=== PATIENT | female | born 1995 | race Caucasian/White ===

== ENCOUNTER → 2017-06-09 13:31 | Outpatient (CLI) | payer BC, SELFPAY ==
[2017-06-09 15:35] LABS: Internal QC Validated? YES +Cl - CLEAR BKGD; Pregnancy, Urine Negative Negative
== END ==
PROVIDERS: Family Provider Family Medicine; PCP Family Medicine; Visit Provider Nurse Practitioner Family
DX: L70.0 Acne vulgaris (principal); Z79.899 Other long term (current) drug therapy
CPT/HCPCS: 81025

== ENCOUNTER → 2017-07-23 10:16 | Outpatient (CLI) | payer BC, SELFPAY ==
[2017-07-23 11:53] LABS: Internal QC Validated? YES +Cl - CLEAR BKGD; Pregnancy, Urine Negative Negative
== END ==
PROVIDERS: Family Provider Family Medicine; PCP Family Medicine; Visit Provider Nurse Practitioner Family
DX: L70.0 Acne vulgaris (principal); Z79.899 Other long term (current) drug therapy; B07.8 Other viral warts; R20.8 Other disturbances of skin sensation; L08.89 Other specified local infections of the skin and subcutaneous tissue
CPT/HCPCS: 81025

== ENCOUNTER → 2017-09-03 16:14 | Outpatient (CLI) | payer BC, SELFPAY ==
--- NOTE | 2017-09-03 16:14 | DT_ITS ---
This patient was seen during an EMR downtime September 01, 2017 - September 08, 2017. This patient may have a combination of paper and electronic documentation or all paper documentation. All documentation is viewable within the e-chart portion of [employer] for each patient visit.
[2017-09-06 11:24] LABS: Internal QC Validated? YES +Cl - CLEAR BKGD; Pregnancy, Urine Negative Negative
== END ==
PROVIDERS: Family Provider Family Medicine; PCP Family Medicine; Visit Provider Nurse Practitioner Family
DX: L70.0 Acne vulgaris (principal); Z79.899 Other long term (current) drug therapy; B07.8 Other viral warts
CPT/HCPCS: 81025

== ENCOUNTER → 2017-10-23 10:53 | Outpatient (CLI) | payer BC, SELFPAY ==
[2017-10-23 11:53] LABS: Internal QC Validated? YES +Cl - CLEAR BKGD; Pregnancy, Urine Negative Negative
[2017-10-23 11:59] LABS: Absolute Lymphocyte Count 1.87 X10^3/ul (0.83-4.51); Absolute Neutrophil Count 5.9 X10^3/uL (2.0-7.7); Basophil# 0.03 X10^3/uL; Basophil% 0.3 % (0-1); Eosinophil# 0.37 X10^3/uL; Eosinophils% 4.1 % (0-5); Hematocrit 41.7 % (37-47); Hemoglobin 13.3 g/dl (12.0-15.0); Lymphocyte # 1.87 X10^3/ul (4.0); Lymphocyte % 20.7 % (19-41); Mean Corp Hgb Conc 31.9 g/gl (32-36); Mean Corpuscular Hgb 26.5 pg (27.0-32.0); Mean Corpuscular Volume 83.1 fL (81-99); Monocyte# 0.81 X10^3/uL; Neutrophil # 5.93 X10^3/uL (2.7-7.7); Neutrophil % 65.7 % (47-70); Platelet Count 243 K/mm3 (150-450); RBC Distribution Width CV 14.7 % (11.6-14.6); RBC Distribution Width SD 44.8 fl (35.1-43.9); Red Blood Count 5.02 M/mm3 (4.2-5.4)
[2017-10-23 12:00] LABS: POSITIVE COUNT NO; POSITIVE DIFFERENTIAL NO; POSITIVE MORPHOLOGY NO
[2017-10-23 12:19] LABS: AST(SGOT) 127 U/L (15-37); Alanine Aminotransfer ALT/SGPT 196 U/L (13-56); Albumin, Serum 3.4 g/dL (3.2-5.0); Alkaline Phosphatase 195 U/L (45-117); Bilirubin, Direct 0.11 mg/dL (0.00-0.30); Cholesterol 187 mg/dL (200); Globulin 4.4 g/dL (2.2-4.2); High Density Lipoprotein 54 mg/dL; Protein, Total 7.8 g/dL (6.4-8.2); Triglycerides 57 mg/dL; Very Low Density Lipoprotein 11 mg/dL (5-40)
[2017-10-23 12:25] LABS: hCG Titer Quant., Serum < 1 mIU/mL (<9 non-preg)
== END ==
PROVIDERS: Family Provider Family Medicine; PCP Family Medicine; Visit Provider Nurse Practitioner Family
DX: L70.0 Acne vulgaris (principal)
CPT/HCPCS: 36415; 80061; 80076; 81025; 84702; 85025